=== PATIENT | female | born 1990 ===

== ENCOUNTER 2016-07-15 20:43 | Emergency (ER) | payer MEDICAID ==
[2016-07-15 20:43] VITALS: BMI 21.9
[2016-07-15 20:49] VITALS: RESP 18; O2SAT 100
--- NOTE | 2016-07-15 21:09 | C.PDOC ---
History Of Present Illness The patient, a 26 y/o female who is currently around 27 WGA, presents to the emergency department for evaluation after she sustained a fall prior to arrival. Patient states she slipped and fell in the bathroom, causing her to hit her lower chest and knee on the bathtub. Patient reports pain to her left anterior knee and left ribs. She presents to the emergency department requesting evaluation and baby monitoring. Patient denies LOC, head injury, chest pain, extremity numbness/weakness. - HPI Time Seen by Provider: 07/15/16 20:51 Chief Complaint (Nursing): Trauma History Per: Patient History/Exam Limitations: no limitations Onset/Duration Of Symptoms: Hrs Injury Occurred (Timing): Just Before Arrival Location Of Injury: Left: Chest (ribs ), Knee (anterior ) Additional History Per: Patient - Fall Fall:Prior To Injury: Slipped Past Medical History Reviewed: Historical Data, Nursing Documentation, Vital Signs Vital Signs: Last Vital Signs Temp 97.9 F 07/15/16 20:46 Pulse 86 07/15/16 20:46 Resp 18 07/15/16 20:46 BP 100/63 07/15/16 20:46 Pulse Ox 100 07/15/16 21:38 - Medical History PMH: No Chronic Diseases Surgical History: No Surg Hx Family History: States: Unknown Family Hx - Social History Hx Tobacco Use: Yes (light smoker) Hx Alcohol Use: No Hx Substance Use: No - Immunization History Hx Tetanus Toxoid Vaccination: No Hx Influenza Vaccination: No Hx Pneumococcal Vaccination: No Review Of Systems Except As Marked, All Systems Reviewed And Found Negative. Constitutional: Negative for: Fever, Chills Cardiovascular: Positive for: Other (+pain to left side of ribs ). Negative for : Chest Pain, Palpitations Respiratory: Negative for: Cough, Shortness of Breath Gastrointestinal: Negative for: Nausea, Vomiting, Abdominal Pain Musculoskeletal: Positive for: Other (+left anterior knee pain ) Physical Exam - Physical Exam Appears: Non-toxic, No Acute Distress Skin: Normal Color, Warm, Dry Head: Atraumatic, Normacephalic Eye(s): bilateral: Normal Inspection, EOMI Oral Mucosa: Moist Neck: Normal ROM, Supple Chest: Symmetrical, No Deformity, No Tenderness Cardiovascular: Rhythm Regular, No Murmur Respiratory: Normal Breath Sounds, No Rales, No Rhonchi, No Wheezing Gastrointestinal/Abdominal: Soft, No Tenderness, No Guarding, No Rebound Back: Normal Inspection, No Vertebral Tenderness, No Paraspinal Tenderness Extremity: Normal ROM, Tenderness (to left anterior knee on palpation ), Capillary Refill (less than 2 seconds), No Deformity, No Swelling Pulses: Left Dorsalis Pedis: Normal, Right Dorsalis Pedis: Normal Neurological/Psych: Oriented x3, Normal Speech, Normal Cognition Gait: Steady ED Course And Treatment O2 Sat by Pulse Oximetry: 100 (on RA) Pulse Ox Interpretation: Normal Progress Note: Patient received Tylenol PO. Medical Decision Making Medical Decision Making: Progress Notes: Patient does not wish to undergo any X-Rays at this time. Case discussed with Dr. Su, who states she will accept the patient upstairs for monitoring. - Scribe Statement The provider has reviewed the documentation as recorded by the Scribe (Elis Mercer) Provider Attestation: All medical record entries made by the Scribe were at my direction and personally dictated by me. I have reviewed the chart and agree that the record accurately reflects my personal performance of the history, physical exam, medical decision making, and the department course for this patient. I have also personally directed, reviewed, and agree with the discharge instructions and disposition.
[2016-07-15 22:02] VITALS: BP 100/59; PULSE 70; TEMP 98.1
--- NOTE | 2016-07-15 23:37 | OBHP ---
Datetime: 07/15/2016 23:33 IP Adm Impression: , intrauterine IP Admit Plan: Observation/Evaluation Admit Comment, IP Provider: at 27weeks came with c/o s/p fall at 8 pm when cleaning ice she tri pped.no renetta orvb, +fm obhx 2 x pmh denies med pnv all nkda psh denoes soch denies a/p at 27we s/p fall cbc/ptt/pt/fib start iv cont observation Pelvic Type - PN: Adequate Extremities - PN: Normal Abdomen - PN: Normal Back - PN: Normal Breast - PN: Normal Lungs - PN: Normal Heart - PN: Normal Thyroid - PN: Normal Neurologic - PN: Normal HEENT - PN: Normal General - PN: Normal FHR - Baseline A Provider: 130 Contraction Comments Provider: irrg Comments, ACOG Physical Exam: gravid,non tender, no bruise ve closed EGA AdmitDate IP: 26.1 Vital Signs Provider: Reviewed; Within Normal Limits IP Chief Complaint: Trauma/Fall NICHD Variability Prov Fetus A: Moderate 6-25bpm Dilatation, Provider: 0 Effacement, Provider: 0 Station, Provider: -3 Genitourinary Exam: Normal DTRs - PN: Normal
[2016-07-15] MEDS ORDERED: Lactated Ringer's 1,000 ML IV SCH (23:45)
[2016-07-16 01:32] LABS: HEMATOCRIT 30.8 % (34.0-47.0); MEAN CELL VOLUME 94.2 fL (81.0-99.0); MEAN CORPUSCULAR HEMOGLOBIN 31.4 pg (27.0-31.0); MEAN CORPUSCULAR HGB CONC 33.3 g/dL (33.0-37.0); MEAN PLATELET VOLUME 8.5 fL (7.2-11.7); RED CELL DISTRIBUTION WIDTH 13.6 % (11.5-14.5); WHITE BLOOD COUNT 12.2 K/uL (4.8-10.8)
[2016-07-16 01:50] LABS: INR 0.9
[2016-07-16 03:21] LABS: RBC URINE 1 /hpf (0-3); URINE BILIRUBIN NEGATIVE (NEGATIVE); URINE BLOOD NEGATIVE (NEGATIVE); URINE COLOR Yellow (YELLOW); URINE GLUCOSE (UA) NORMAL (Normal); URINE KETONE NEGATIVE (NEGATIVE); URINE LEUKOCYTE ESTERASE NEG Leu/uL (Negative); URINE PROTEIN NEGATIVE (NEGATIVE); URINE UROBILINOGEN NORMAL mg/dL (0.2-1.0); WBC URINE 1 /hpf (0-5)
--- NOTE | 2016-07-16 06:18 | OBHP ---
Datetime: 07/16/2016 06:16 Admit Comment, IP Provider: pt was seen at bed side, no pain no vb, lof,+fm blood work neg plan dc home ptl given po hyration f/u in clini in 2-3days FHR - Baseline A Provider: 130 Contraction Comments Provider: none Vital Signs Provider: Reviewed; Within Normal Limits NICHD Variability Prov Fetus A: Moderate 6-25bpm
--- NOTE | 2016-07-16 06:20 | OBDCSUM ---
Datetime: 07/16/2016 06:17 Discharged to, Provider: Home Follow up at, Provider: 2-3days Follow up in weeks, Provider: clinic Discharge Comment, Provider: dc home ptl given po hyration f/u in clini in 2-3days Discharge Diagnosis Prov Other: 29weeeks nst s/p fall
== END 2016-07-16 06:17 | disposition home or self-care (01) ==
LOC: C.ER 20:43 → C.EROB 20:43
DX: Z04.3 Encounter for examination and observation following other accident (principal)